=== PATIENT | male | born 2000 | race Caucasian/White ===

== ENCOUNTER 2020-02-28 15:58 | Outpatient (CLI) | payer BC, SELFPAY | END 2020-02-28 15:59 | disposition home or self-care (01) | LOC: ANHLAB 15:59 | PROVIDERS: PCP Family Medicine; Visit Provider Nurse Practitioner Family | DX: Z20.2 Contact with and (suspected) exposure to infections with a predominantly sexual mode of transmission (principal) | CPT/HCPCS: 87491; 87591; 87661 ==